=== PATIENT | female | born 1970 | race Caucasian/White ===

== ENCOUNTER → 2021-06-03 | Day surgery (SDC) | payer OTHER ==
[~2021-06-03] MED LIST: BUPIVACAINE 0.25% 30ML SDV ONE; BUPIVACAINE HCL 0.5% INJ 30 ML VIAL INJ ONE; DEXAMETHASONE SOD PHOS INJ 4 MG/ML SDV ONE; FENTANYL CITRATE/PF 100MCG/2 ML INJ ONE; HYDROMORPHONE 1MG/1ML INJ ONE; LIDOCAINE 1% W/EPINEPHRINE 20 ML VIAL ONE; LIDOCAINE HCL 2% LOCAL INJ 5 ML SDV VIAL INJ ONE; MIDAZOLAM HCL 2 MG/2 ML VIAL ONE; ONDANSETRON HCL INJ 2MG/ML 2ML 2 MG/ML VIAL ONE; POVIDONE IODINE 0.05% 0.05 % ML PO ONE; PROPOFOL IV EMULSION 10 MG/ML 20 ML VIAL ONE; SEVOFLURANE INHAL SOLN 250 ML PEN BTL ONE; TOPIRAMATE100 MG PO; WELLBUTRIN SR100 MG PO
[2021-06-03 11:06] VITALS: BP 121/86
== END | disposition home or self-care (01) ==
LOC: OR 07:13
PROVIDERS: ATTEND Orthopaedic Surgery
DX: S83.232A Complex tear of medial meniscus, current injury, left knee, initial encounter (principal); S83.282A Other tear of lateral meniscus, current injury, left knee, initial encounter; M22.42 Chondromalacia patellae, left knee; M67.52 Plica syndrome, left knee; S83.231A Complex tear of medial meniscus, current injury, right knee, initial encounter; F32.A Depression, unspecified; X58.XXXA Exposure to other specified factors, initial encounter; Z01.810 Encounter for preprocedural cardiovascular examination; Z01.812 Encounter for preprocedural laboratory examination; Z20.822 Contact with and (suspected) exposure to COVID-19; Z79.899 Other long term (current) drug therapy
CPT/HCPCS: 29882; 93005; C1713 ×3; J0690; J1100; J1170; J2001; J2250; J2405; J2704; J3010; U0002

== ENCOUNTER → 2021-12-30 | Day surgery (SDC) | payer OTHER ==
[~2021-12-30] MED LIST changes: +ACETAMINOPHEN 1000 MG/100 ML IV ONE; -BUPIVACAINE HCL 0.5% INJ 30 ML VIAL INJ ONE; +EPHEDRINE SULFATE INJ 50 MG/ML VIAL ONE; -HYDROMORPHONE 1MG/1ML INJ ONE; +KETOROLAC TROMETHAMINE 30 MG/ML VIAL ONE; -LIDOCAINE 1% W/EPINEPHRINE 20 ML VIAL ONE; +LIDOCAINE 2% /EPINEPHRINE 20 ML SDV INJ ONE; -MIDAZOLAM HCL 2 MG/2 ML VIAL ONE
[2021-12-30 08:55] VITALS: BP 118/82
== END | disposition home or self-care (01) ==
LOC: OR 05:00
PROVIDERS: ATTEND Orthopaedic Surgery
DX: S83.231A Complex tear of medial meniscus, current injury, right knee, initial encounter (principal); S83.281A Other tear of lateral meniscus, current injury, right knee, initial encounter; M22.41 Chondromalacia patellae, right knee; M67.51 Plica syndrome, right knee; F32.A Depression, unspecified; X58.XXXA Exposure to other specified factors, initial encounter; Z01.810 Encounter for preprocedural cardiovascular examination; Z01.812 Encounter for preprocedural laboratory examination; Z20.822 Contact with and (suspected) exposure to COVID-19; Z79.82 Long term (current) use of aspirin; Z79.899 Other long term (current) drug therapy; Z98.1 Arthrodesis status
CPT/HCPCS: 0223U; 29879; 29882; 36415; 93005; C1713 ×4; J0131; J0690; J1100; J1885; J2001 ×2; J2405; J2704; J3010